=== PATIENT | male | born 1995 | race Caucasian/White ===

== ENCOUNTER 2019-10-01 19:55 | Emergency (ER) | payer BC ==
[2019-10-01 20:09] VITALS: BP 136/78
--- NOTE | 2019-10-01 20:38 | UC ---
Laceration HPI - HPI Summary HPI Summary: Patient is a 24yo male presenting with girlfriend for L thumb laceration that occurred 3 hours ago while cutting lettuce. States he is here now because bleeding will not stop. Denies pain. Denies decreased ROM and sensation. States he is UTD on tetanus. - History Of Current Complaint Chief Complaint: UCLaceration Stated Complaint: LEFT THUMB LACERATION Hx Obtained From: Patient Onset/Duration: Sudden Onset Pain Intensity: 0 Pain Scale Used: 0-10 Numeric - Allergies/Home Medications Allergies/Adverse Reactions: Allergies Allergy/AdvReac Type Severity Reaction Status Date / Time No Known Allergies Allergy Verified 10/01/19 20:10 Home Medications: Home Medications NK [No Home Medications Reported] 10/01/19 [History Confirmed 10/01/19] PMH/Surg Hx/FS Hx/Imm Hx Previously Healthy: Yes - Surgical History Surgical History: None - Family History Known Family History: Positive: Unknown, Non-Contributory - Social History Alcohol Use: Weekly Substance Use Type: None Smoking Status (MU): Never Smoked Tobacco Review of Systems All Other Systems Reviewed And Are Negative: No Skin: Positive: Other - L thumb laceration Respiratory: Positive: Negative Cardiovascular: Positive: Negative Musculoskeletal: Positive: Negative. Negative: Arthralgia, Decreased ROM, Edema Neurological: Positive: Negative. Negative: Weakness, Paresthesia, Numbness Physical Exam Triage Information Reviewed: Yes Appearance: Well-Appearing, No Pain Distress, Well-Nourished Vital Signs: Initial Vital Signs Temp 100.0 F 10/01/19 20:07 Pulse 87 10/01/19 20:07 Resp 16 10/01/19 20:07 BP 136/78 10/01/19 20:07 Pulse Ox 100 10/01/19 20:07 Vital Signs Reviewed: Yes Eyes: Positive: Conjunctiva Clear ENT: Positive: Hearing grossly normal Neck: Positive: Supple Respiratory: Positive: No respiratory distress Cardiovascular: Positive: Pulses Normal, Brisk Capillary Refill Musculoskeletal Exam: Normal Musculoskeletal: Positive: Strength Intact, ROM Intact, No Edema Neurological Exam: Other - sensation grossly intact Neurological: Positive: Alert Psychological: Positive: Age Appropriate Behavior Skin: Positive: Other - 1cm superficial linear laceration noted of L distal thumb Laceration Course/Dx - Course/Dx Course Of Treatment: Thumb laceration did not require suture repair. Patient's wound was irrigated and pressure was applied for 10 minutes. Bleeding stopped. I applied skin glue and educated on s/s of skin infection to watch for over the next few days. Educated on wound care as well. Patient stated UTD on tetanus. Patient voiced understanding and agreed with treatment plan. - Diagnosis Provider Diagnosis: Laceration of left thumb without complication Discharge ED - Sign-Out/Discharge Documenting (check all that apply): Patient Departure All imaging exams completed and their final reports reviewed: No Studies - Discharge Plan Condition: Stable Disposition: HOME Patient Education Materials: Finger Laceration (ED) Referrals: Kaden CORNEJO,[place] [Primary Care Provider] - If Needed Additional Instructions: Your laceration was glued today. The glue should fall of on its own within 7 days. Keep the area clean and dry for the next 24 hours. After that you may gently wash and pat dry. Do not soak the area. Return or go to the emergency room if you experience pain, swelling, redness or warmth of the area, or fever. - Billing Disposition and Condition Condition: STABLE Disposition: Home
== END 2019-10-01 20:56 | disposition home or self-care (01) ==
LOC: UCCORT 19:55
DX: S61.012A Laceration without foreign body of left thumb without damage to nail, initial encounter (principal); W45.8XXA Other foreign body or object entering through skin, initial encounter; Y92.9 Unspecified place or not applicable
CPT/HCPCS: 12001; 99201; G0463